=== PATIENT | male | born 1990 | race Caucasian/White ===

== ENCOUNTER 2020-04-11 16:04 | Emergency (ER) | payer SELFPAY ==
[~2020-04-11] VITALS: Ht 188 cm; Wt 159.1 kg
[2020-04-11 16:11] VITALS: TEMP 96.9
[2020-04-11 17:22] VITALS: BP 141/84; PULSE 83
== END 2020-04-11 17:22 | disposition home or self-care (01) ==
LOC: COL.ER 16:04
DX: F41.9 Anxiety disorder, unspecified (principal); F25.9 Schizoaffective disorder, unspecified; F17.200 Nicotine dependence, unspecified, uncomplicated; Z88.0 Allergy status to penicillin